=== PATIENT | female | born 2000 | race Caucasian/White ===

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

== ENCOUNTER → 2021-05-19 | Outpatient (CLI) | payer OTHER ==
[2021-05-19 15:18] LABS: BASO # 0.1 10^3/uL (0.0-0.2); BASO % 0.5 % (0.0-1.0); EOS # 0.1 10^3/uL (0.0-0.5); HEMATOCRIT 43.2 % (36.0-47.0); HEMOGLOBIN 14.1 g/dl (12.0-15.5); LYMPH # 2.7 10^3/uL (1.5-5.0); LYMPH % 28.6 % (24.0-44.0); MEAN CORPUSCULAR HEMOGLOBIN 26.8 pg (27.0-33.0); MEAN CORPUSCULAR HGB CONC 32.6 g/dl (32.0-36.5); MEAN CORPUSCULAR VOLUME 82.1 fl (80.0-96.0); MONO # 0.5 10^3/uL (0.0-0.8); MONO % 4.8 % (2.0-8.0); NEUTROPHILS # 6.2 10^3/uL (1.5-8.5); NEUTROPHILS % 64.6 % (36.0-66.0); PLATELET COUNT, AUTOMATED 376 10^3/uL (150-450); RED BLOOD COUNT 5.26 10^6/uL (4.00-5.40); WHITE BLOOD COUNT 9.6 10^3/uL (4.0-10.0)
[2021-05-19 15:49] LABS: ALBUMIN 4.6 GM/DL (3.2-5.2); ALT/SGPT 47 U/L (12-78); BILIRUBIN,TOTAL 0.3 MG/DL (0.2-1.0); BLOOD UREA NITROGEN 9 MG/DL (7-18); CALCIUM LEVEL 9.5 MG/DL (8.5-10.1); CARBON DIOXIDE LEVEL 28 MEQ/L (21-32); CHLORIDE LEVEL 106 MEQ/L (98-107); CREATININE FOR GFR 0.71 MG/DL (0.55-1.30); FREE T4 0.99 NG/DL (0.78-1.33); GLUCOSE, FASTING 85 MG/DL (70-100); POTASSIUM SERUM 4.4 MEQ/L (3.5-5.1); SODIUM LEVEL 138 MEQ/L (136-145)
[2021-05-19 15:58] LABS: HEMOGLOBIN A1c 5.3 %
== END ==
LOC: M PLALAB 12:29
PROVIDERS: ATTEND Physician Assistant
DX: F90.9 Attention-deficit hyperactivity disorder, unspecified type (principal); Z68.30 Body mass index [BMI] 30.0-30.9, adult; E04.1 Nontoxic single thyroid nodule

== ENCOUNTER → 2021-07-14 | Outpatient (REF) | payer OTHER | LOC: M SFHCPLAZ 13:20 | PROVIDERS: ATTEND Physician Assistant | DX: J02.9 Acute pharyngitis, unspecified (principal) ==

== ENCOUNTER 2021-10-06 15:56 | Emergency (ER) | payer OTHER ==
[~2021-10-06] VITALS: Ht 165.1 cm; Wt 84.2 kg
[2021-10-06] MEDS ORDERED: TRAZ-257 (16:07)
[2021-10-06] MEDS ORDERED: ATOM60CA7 (16:07)
[2021-10-06] MEDS ORDERED: BOOSTRIX/ADACEL VACCINE (DIPHTH/PERTUSS/ACELL/TETANUS) 0.5ML SYR IM ONE (16:55)
[2021-10-06] MEDS ORDERED: DERMABOND TOPICAL SKIN ADHESIVE TOP ONE (17:10)
[2021-10-06 17:51] VITALS: BP 124/78
== END 2021-10-06 17:55 | disposition home or self-care (01) ==
LOC: M ED 15:56
DX: S60.112A Contusion of left thumb with damage to nail, initial encounter (principal); W22.8XXA Striking against or struck by other objects, initial encounter; Y99.0 Civilian activity done for income or pay; Z88.8 Allergy status to other drugs, medicaments and biological substances; Z79.899 Other long term (current) drug therapy; Z23 Encounter for immunization

== ENCOUNTER 2022-09-12 19:24 | Emergency (ER) | payer OTHER ==
[~2022-09-12] VITALS: Ht 160 cm; Wt 87.7 kg
[~2022-09-12 19:24] MED LIST changes: +ATOM60CA7; +TRAZ-257
[2022-09-12 20:20] LABS: BASO % 0.3 % (0.0-1.0); EOS # 0.2 10^3/uL (0.0-0.5); HEMOGLOBIN 14.1 g/dl (12.0-15.5); LYMPH # 3.2 10^3/uL (1.5-5.0); LYMPH % 35.6 % (24.0-44.0); MEAN CORPUSCULAR HEMOGLOBIN 25.7 pg (27.0-33.0); MEAN CORPUSCULAR HGB CONC 32.8 g/dl (32.0-36.5); MEAN CORPUSCULAR VOLUME 78.5 fl (80.0-96.0); MONO # 0.5 10^3/uL (0.0-0.8); MONO % 5.4 % (2.0-8.0); NEUTROPHILS % 56.1 % (36.0-66.0); PLATELET COUNT, AUTOMATED 366 10^3/uL (150-450); RED BLOOD COUNT 5.48 10^6/uL (4.00-5.40); WHITE BLOOD COUNT 8.9 10^3/uL (4.0-10.0)
[2022-09-12] MEDS ORDERED: KETOROLAC 30 MG/ML 1ML VIAL IV ONE (20:35)
[2022-09-12 20:42] LABS: LIPASE 32 U/L (12-53)
[2022-09-12 20:44] LABS: ALBUMIN 4.1 G/DL (3.2-5.2); ALKALINE PHOSPHATASE 76 U/L (46-116); ALT/SGPT 26 U/L (7.0-40); AST/SGOT 22 U/L (<34); BILIRUBIN,DIRECT < 0.1 MG/DL (<0.4); BILIRUBIN,TOTAL 0.2 MG/DL (0.3-1.2); BLOOD UREA NITROGEN 9 MG/DL (9-23); CALCIUM LEVEL 8.8 MG/DL (8.5-10.1); CARBON DIOXIDE LEVEL 20 MMOL/L (20-31); CHLORIDE LEVEL 111 MMOL/L (98-107); CREATININE FOR GFR 0.54 MG/DL (0.55-1.30); GLOMERULAR FILTRATION RATE > 60.0 (>60); GLUCOSE, FASTING 91 MG/DL (60-100); SODIUM LEVEL 142 MMOL/L (136-145); TOTAL PROTEIN 7.2 G/DL (5.7-8.2)
[2022-09-12 20:51] LABS: HCG, SERUM QUALITATIVE NEGATIVE (NEGATIVE)
[2022-09-12] MEDS ORDERED: ISOVUE-370 76% 100ML VIAL As Ordered ONE (20:55)
[2022-09-12 22:18] VITALS: BP 120/66; TEMP 98; O2SAT 98
[2022-09-12 22:20] LABS: APPEARANCE, URINE CLEAR (CLEAR); BACTERIA, URINE AUTO NEGATIVE (NEGATIVE); BILIRUBIN, URINE AUTO NEGATIVE (NEGATIVE); BLOOD, URINE BLOOD NEGATIVE (NEGATIVE); COLOR, URINE YELLOW (YELLOW); GLUCOSE, URINE (UA) AUTO NEGATIVE (NEGATIVE); KETONE, URINE AUTO NEGATIVE (NEGATIVE); LEUKOCYTE ESTERASE, URINE AUTO NEGATIVE (NEGATIVE); MUCUS, URINE SMALL (NEGATIVE); NITRITE, URINE AUTO NEGATIVE (NEGATIVE); PROTEIN, URINE AUTO NEGATIVE (NEGATIVE); RBC, URINE AUTO 1 /HPF (0-3); SPECIFIC GRAVITY URINE AUTO 1.058 (1.002-1.035); SQUAMOUS EPITHELIAL CELL UR AU 1 /HPF (0-6); WBC, URINE AUTO 0 /HPF (0-3)
[2022-09-12] MEDS ORDERED: IBUP-1022 PO (22:38)
== END 2022-09-12 23:32 | disposition home or self-care (01) ==
LOC: M ED 19:24
DX: R10.9 Unspecified abdominal pain (principal); I88.0 Nonspecific mesenteric lymphadenitis; Z88.1 Allergy status to other antibiotic agents; Z79.02 Long term (current) use of antithrombotics/antiplatelets; Z79.899 Other long term (current) drug therapy
CPT/HCPCS: 74177; 80048; 80076; 81001; 83690; 84703; 85025; 96374; 99283; J1885; Q9967

== ENCOUNTER → 2022-09-21 | Outpatient (CLI) | payer OTHER ==
[~2022-09-21] MED LIST changes: +IBUP-1022 PO
== END ==
LOC: M ADAMS 08:56
PROVIDERS: ATTEND Physician Assistant
DX: M41.9 Scoliosis, unspecified (principal); F90.9 Attention-deficit hyperactivity disorder, unspecified type; Z68.30 Body mass index [BMI] 30.0-30.9, adult; E04.1 Nontoxic single thyroid nodule; Z83.438 Family history of other disorder of lipoprotein metabolism and other lipidemia

== ENCOUNTER → 2022-09-21 | Outpatient (REF) | payer OTHER ==
[2022-09-21 13:33] LABS: ALKALINE PHOSPHATASE 82 U/L (46-116); ALT/SGPT 32 U/L (7.0-40); AST/SGOT 18 U/L (<34); BILIRUBIN,TOTAL 0.5 MG/DL (0.3-1.2); BLOOD UREA NITROGEN 11 MG/DL (9-23); CALCIUM LEVEL 10.2 MG/DL (8.5-10.1); CARBON DIOXIDE LEVEL 25 MMOL/L (20-31); CHLORIDE LEVEL 104 MMOL/L (98-107); CHOLESTEROL LEVEL 205 MG/DL (<200); CHOLESTEROL RISK RATIO 6.52 (<5); CREATININE FOR GFR 0.68 MG/DL (0.55-1.30); GLOMERULAR FILTRATION RATE > 60.0 (>60); GLUCOSE, FASTING 83 MG/DL (60-100); HDL CHOLESTEROL 31.4 MG/DL (>40); LDL CHOLESTEROL 137.6 MG/DL (<100); NON-HDL-C 173.6 MG/DL; POTASSIUM SERUM 4.3 MMOL/L (3.5-5.1); SODIUM LEVEL 136 MMOL/L (136-145); THYROID STIMULATING HORMONE 2.204 uIU/ML (0.55-4.78); TOTAL PROTEIN 7.1 G/DL (5.7-8.2); TRIGLYCERIDES LEVEL 180 MG/DL (<150)
[2022-09-21 13:34] LABS: BASO # 0.1 10^3/uL (0.0-0.2); BASO % 0.6 % (0.0-1.0); EOS # 0.1 10^3/uL (0.0-0.5); EOS % 1.2 % (0.0-3.0); FREE T4 0.93 NG/DL (0.89-1.76); HEMATOCRIT 42.2 % (36.0-47.0); HEMOGLOBIN 13.1 g/dl (12.0-15.5); LYMPH # 2.4 10^3/uL (1.5-5.0); LYMPH % 28.1 % (24.0-44.0); MEAN CORPUSCULAR HEMOGLOBIN 25.3 pg (27.0-33.0); MEAN CORPUSCULAR VOLUME 81.5 fl (80.0-96.0); MONO # 0.4 10^3/uL (0.0-0.8); MONO % 4.9 % (2.0-8.0); NEUTROPHILS # 5.6 10^3/uL (1.5-8.5); NEUTROPHILS % 64.9 % (36.0-66.0); PLATELET COUNT, AUTOMATED 336 10^3/uL (150-450); RED BLOOD COUNT 5.18 10^6/uL (4.00-5.40); WHITE BLOOD COUNT 8.7 10^3/uL (4.0-10.0)
[2022-09-21 14:01] LABS: HEMOGLOBIN A1c 5.3 % (4.0-6.0)
== END ==
LOC: M SFHCADAM 08:51
PROVIDERS: ATTEND Physician Assistant
DX: F90.9 Attention-deficit hyperactivity disorder, unspecified type (principal); Z68.30 Body mass index [BMI] 30.0-30.9, adult; E04.1 Nontoxic single thyroid nodule; Z83.438 Family history of other disorder of lipoprotein metabolism and other lipidemia

== ENCOUNTER → 2022-10-31 | Outpatient (CLI) | payer OTHER ==
[~2022-10-31] MED LIST changes: +GASTROGRAFIN SOLUTION 30ML As Ordered ONE; +ISOVUE-370 76% 100ML VIAL As Ordered ONE
== END ==
LOC: M RAD 08:36
PROVIDERS: ATTEND Physician Assistant
DX: I88.0 Nonspecific mesenteric lymphadenitis (principal)
CPT/HCPCS: 74177; Q9963; Q9967

== ENCOUNTER → 2023-04-18 | Outpatient (REF) | payer OTHER ==
[~2023-04-18] MED LIST changes: -GASTROGRAFIN SOLUTION 30ML As Ordered ONE; -ISOVUE-370 76% 100ML VIAL As Ordered ONE
== END ==
LOC: M SFHCWAGY 17:04
PROVIDERS: ATTEND Nurse Practitioner Family
DX: N39.0 Urinary tract infection, site not specified (principal)

== ENCOUNTER → 2023-09-10 | Outpatient (CLI) | payer OTHER ==
[2023-09-10 19:23] LABS: BASO # 0.1 10^3/uL (0.0-0.2); BASO % 0.6 % (0.0-1.0); EOS # 0.1 10^3/uL (0.0-0.5); EOS % 1.4 % (0.0-3.0); HEMATOCRIT 40.9 % (36.0-47.0); HEMOGLOBIN 13.1 g/dl (12.0-15.5); LYMPH # 2.9 10^3/uL (1.5-5.0); LYMPH % 36.3 % (24.0-44.0); MEAN CORPUSCULAR HEMOGLOBIN 26.7 pg (27.0-33.0); MEAN CORPUSCULAR VOLUME 83.3 fl (80.0-96.0); MONO # 0.4 10^3/uL (0.0-0.8); MONO % 5.1 % (2.0-8.0); NEUTROPHILS # 4.5 10^3/uL (1.5-8.5); NEUTROPHILS % 56.3 % (36.0-66.0); PLATELET COUNT, AUTOMATED 353 10^3/uL (150-450); RED BLOOD COUNT 4.91 10^6/uL (4.00-5.40); WHITE BLOOD COUNT 7.9 10^3/uL (4.0-10.0)
[2023-09-10 19:26] LABS: ALBUMIN 4.1 G/DL (3.2-5.2); ALKALINE PHOSPHATASE 70 U/L (46-116); ALT/SGPT 35 U/L (7.0-40); AST/SGOT 25 U/L (<34); BILIRUBIN,TOTAL 0.4 MG/DL (0.3-1.2); BLOOD UREA NITROGEN 7 MG/DL (9-23); CALCIUM LEVEL 9.4 MG/DL (8.5-10.1); CARBON DIOXIDE LEVEL 26 MMOL/L (20-31); CHLORIDE LEVEL 106 MMOL/L (98-107); CHOLESTEROL LEVEL 191 MG/DL (<200); CHOLESTEROL RISK RATIO 5.45 (<5); CREATININE FOR GFR 0.66 MG/DL (0.55-1.30); GLOMERULAR FILTRATION RATE > 60.0 (>60); GLUCOSE, FASTING 78 MG/DL (60-100); LDL CHOLESTEROL 134.8 MG/DL (<100); POTASSIUM SERUM 4.2 MMOL/L (3.5-5.1); SODIUM LEVEL 137 MMOL/L (136-145); TOTAL PROTEIN 6.9 G/DL (5.7-8.2); TRIGLYCERIDES LEVEL 106 MG/DL (<150)
[2023-09-10 19:27] LABS: FREE T4 1.01 NG/DL (0.89-1.76)
[2023-09-10 19:28] LABS: THYROID STIMULATING HORMONE 1.247 uIU/ML (0.55-4.78)
[2023-09-10 20:29] LABS: HEMOGLOBIN A1c 5.1 % (4.0-6.0)
== END ==
LOC: M WUC 13:13
PROVIDERS: ATTEND Physician Assistant
DX: F90.9 Attention-deficit hyperactivity disorder, unspecified type (principal); G47.00 Insomnia, unspecified; E78.00 Pure hypercholesterolemia, unspecified; Z68.33 Body mass index [BMI] 33.0-33.9, adult

== ENCOUNTER → 2023-09-18 | Outpatient (REF) | payer OTHER ==
[2023-09-21 17:48] LABS: HPV APTIMA Not Detected (Not Detected)
== END ==
LOC: M SFHCWAGY 17:02
PROVIDERS: ATTEND Nurse Practitioner Family
DX: R30.0 Dysuria (principal); R87.610 Atypical squamous cells of undetermined significance on cytologic smear of cervix (ASC-US)

== ENCOUNTER → 2023-09-26 | Outpatient (CLI) | payer OTHER | LOC: M ADAMS 10:45 | PROVIDERS: ATTEND Physician Assistant | DX: M25.561 Pain in right knee (principal) ==

== ENCOUNTER 2023-11-06 10:45 | Outpatient (RCR) | payer OTHER | END 2023-11-10 | LOC: M PT 10:45 | PROVIDERS: ATTEND Physician Assistant | DX: M25.561 Pain in right knee (principal) ==

== ENCOUNTER → 2023-11-16 | Outpatient (REF) | payer OTHER ==
[2023-11-16 17:59] LABS: BASO % 0.5 % (0.0-1.0); EOS # 0.1 10^3/uL (0.0-0.5); EOS % 1.3 % (0.0-3.0); HEMATOCRIT 42.9 % (36.0-47.0); HEMOGLOBIN 13.6 g/dl (12.0-15.5); LYMPH # 2.7 10^3/uL (1.5-5.0); LYMPH % 33.4 % (24.0-44.0); MEAN CORPUSCULAR HEMOGLOBIN 26.6 pg (27.0-33.0); MEAN CORPUSCULAR HGB CONC 31.7 g/dl (32.0-36.5); MEAN CORPUSCULAR VOLUME 83.8 fl (80.0-96.0); MONO # 0.5 10^3/uL (0.0-0.8); MONO % 5.9 % (2.0-8.0); NEUTROPHILS # 4.7 10^3/uL (1.5-8.5); NEUTROPHILS % 58.5 % (36.0-66.0); PLATELET COUNT, AUTOMATED 353 10^3/uL (150-450); RED BLOOD COUNT 5.12 10^6/uL (4.00-5.40)
[2023-11-16 18:22] LABS: PERCENT SATURATION 12.6 % (13.2-45.0)
[2023-11-16 18:26] LABS: FERRITIN 12.5 NG/ML (7.3-270.7)
[2023-11-16 18:27] LABS: FOLATE 11.1 NG/ML (>5.4); THYROID STIMULATING HORMONE 0.892 uIU/ML (0.55-4.78)
[2023-11-16 18:30] LABS: FREE T4 1.11 NG/DL (0.89-1.76)
== END ==
LOC: M SFHCADAM 11:03
PROVIDERS: ATTEND Physician Assistant
DX: L65.9 Nonscarring hair loss, unspecified (principal)

== ENCOUNTER 2023-11-22 15:00 | Outpatient (RCR) | payer OTHER | END 2023-12-10 | LOC: M PT 15:00 | PROVIDERS: ATTEND Physician Assistant | DX: M25.561 Pain in right knee (principal) ==

== ENCOUNTER → 2023-12-24 | Outpatient (CLI) | payer OTHER | LOC: M PLAIMG 08:34 | PROVIDERS: ATTEND Physician Assistant | DX: M25.561 Pain in right knee (principal) ==

== ENCOUNTER → 2023-12-25 | Outpatient (CLI) | payer OTHER | LOC: M WHC 10:42 | PROVIDERS: ATTEND Physician Assistant | DX: N63.42 Unspecified lump in left breast, subareolar (principal) ==

== ENCOUNTER → 2025-02-27 | Outpatient (CLI) | payer OTHER ==
[~2025-02-27] MED LIST changes: -IBUP-1022 PO; +IBUP600T42 PO
[2025-02-27 14:14] LABS: PLATELET COUNT, AUTOMATED 360 10^3/uL (150-450)
[2025-02-27 14:47] LABS: ALT/SGPT 29 U/L (7.0-40); AST/SGOT 21 U/L (<34); CALCIUM LEVEL 9.1 MG/DL (8.5-10.1); CARBON DIOXIDE LEVEL 27 MMOL/L (20-31); CHLORIDE LEVEL 102 MMOL/L (98-107); CHOLESTEROL LEVEL 218 MG/DL (<200); CHOLESTEROL RISK RATIO 5.43 (<5); CREATININE FOR GFR 0.71 MG/DL (0.55-1.30); GLOMERULAR FILTRATION RATE > 90.0 (>60); LDL CHOLESTEROL 161.7 MG/DL (<100); NON-HDL-C 177.9 MG/DL; POTASSIUM SERUM 4.5 MMOL/L (3.5-5.1); SODIUM LEVEL 140 MMOL/L (136-145); TRIGLYCERIDES LEVEL 81 MG/DL (<150)
[2025-02-27 14:52] LABS: FREE T4 1.11 NG/DL (0.89-1.76)
[2025-02-27 15:17] LABS: ESTIMATED AVERAGE GLUCOSE 97.0 MG/DL (60-110)
== END ==
LOC: M PLALAB 10:30
DX: E04.1 Nontoxic single thyroid nodule (principal); E78.00 Pure hypercholesterolemia, unspecified; Z13.0 Encounter for screening for diseases of the blood and blood-forming organs and certain disorders involving the immune mechanism; Z68.33 Body mass index [BMI] 33.0-33.9, adult